=== PATIENT | male | born 1940 | race Caucasian/White ===

== ENCOUNTER → 2016-11-11 | Outpatient (CLI) | payer OTHER, MEDICARE | LOC: BHFA 14:00 | PROVIDERS: ATTEND Internal Medicine Interventional Cardiology | DX: I25.10 Atherosclerotic heart disease of native coronary artery without angina pectoris (principal); Z95.1 Presence of aortocoronary bypass graft; E78.5 Hyperlipidemia, unspecified; I10 Essential (primary) hypertension; I48.91 Unspecified atrial fibrillation ==

== ENCOUNTER 2017-01-24 14:26 | Inpatient (IN) | payer OTHER, MEDICARE ==
[2017-01-24 14:35] LABS: COLOR YELLOW; NITRITE,URINE POSITIVE (NEGATIVE); PH,URINE 5.5 (5.0-7.5)
--- NOTE | 2017-01-24 14:43 | EDPHY ---
H & P Stated Complaint: FREQUENCY, DARK URINE SINCE YESTERDAY; CHILLS HPI/ROS: HPI CHIEF COMPLAINT: Urinary frequency, dysuria x1 day HISTORY OF PRESENT ILLNESS: This patient very pleasant 76-year-old male, presents emergency room with dysuria, urinary frequency x1 day. No fever. No back pain no abdominal pain no nausea vomiting. Denies chest pain or shortness of breath. Main complaint dysuria, urinary frequency. Past Medical History: Parkinsonism, coronary artery disease Past Surgical History: CABG Social History: Denies daily use drugs alcohol tobacco products Family History: Noncontributory ROS REVIEW OF SYSTEMS: A comprehensive 10 point review of systems is otherwise negative aside from elements mentioned in the history of present illness. Exam Constitutional appears well nontoxic triage nursing summary reviewed, vital signs reviewed, awake/alert. Eyes normal conjunctivae and sclera, EOMI, PERRLA. HENT normal inspection, atraumatic, moist mucus membranes, no epistaxis, neck supple/ no meningismus, no raccoon eyes. Respiratory clear to auscultation bilaterally, normal breath sounds, no respiratory distress, no wheezing. Cardiovascular rate normal, regular rhythm, no murmur, no edema, distal pulses normal. Gastrointestinal soft, non-tender, no rebound, no guarding, normal bowel sounds, no distension, no pulsatile mass. Genitourinary no CVA tenderness. Musculoskeletal no midline vertebral tenderness, full range of motion, no calf swelling, no tenderness of extremities, no meningismus, good pulses, neurovascularly intact. Skin pink, warm, & dry, no rash, skin atraumatic. Neurologic awake, alert and oriented x 3, AAOx3, moves all 4 extremities equally, motor intact, sensory intact, CN II-XII intact, normal cerebellar, normal vision, normal speech. Psychiatric normal mood/affect. Heme/Lymph/Immune no lymphadenopathy. Differential Diagnosis: Includes but is not limited to in a particular order, a urinary tract infection, cystitis, urethritis, pyelo Medical Decision Making: This patient appears well nontoxic no acute distress normal vital signs no fever. Complaining of dysuria urinary frequency x1 day concern for UTI. Will send urinalysis. Re-evaluation: Urinalysis results nitrite positive. Will send urine culture. 1st dose of Keflex given here in the emergency room. Keflex take-home pack. Understands follow-up with his primary care doctor return emergency room if develops worsening symptoms includes high fever, vomiting or questions or concerns. 1534: This patient tells me his blood pressure normally is 130 systolic. He has had 2 low readings here of 89 systolic and 90 systolic. Due to his nitrite positive UTI I am concerned that may be having hypotension in the setting of a urinary tract infection. Will expand his workup with an IV established, IV fluid bolus, check a lactic acid, blood cultures, blood work. 1618: Re-evaluation at this time this patient's blood pressure 102 systolic. Blood work reviewed as an elevated lactic acid, nitrite positive UTI with leukocyte Estrace bacteria, whites and reds. Given this patient's UTI, lower blood pressures 80s and 90 systolic, elevated lactic acid white count of 20k+ I do recommend he gets admitted to the hospital for IV fluid resuscitation, IV antibiotics and concern for UTI with sepsis. Getting his 2nd L fluid at this time. Will repeat his lactic acid. I did speak to the hospitalist service Dr. Davidson who agrees to admit patient. Patient be admitted to PCU for close monitoring. No evidence of septic shock at this time. Hemodynamically stable. No need for pressors or central line at this time. Blood cultures pending. Urine culture pending. 1707: Repeat lactic acid still of a 2.4 but coming down after 2 L of fluid. 3rd L of fluid ordered. Current blood pressure is 105/57. Hemodynamically stable. Heart rate 75. Afebrile. Source: Patient - Personal History Current Tetanus/Diphtheria Vaccine: Yes Tetanus Vaccine Date: WITHIN 10 YRS - Medical/Surgical History Hx Asthma: No Hx Chronic Respiratory Disease: No Hx Diabetes: No Hx Cardiac Disease: Yes Hx Renal Disease: No Hx Cirrhosis: No Hx Alcoholism: No Hx HIV/AIDS: No Hx Splenectomy or Spleen Trauma: No Other PMH: medical- HTN, HLD, SPINAL STENOSIS, BPH, CAD, parkinsons, afib. surgical- CARDIAC BYPASS, ORTHO SURGERY, cholecystectomy, - Social History Smoking Status: Never smoked Constitutional: Initial Vital Signs Temperature (C) 37.8 C 01/24/17 14:30 Heart Rate 90 01/24/17 14:30 Respiratory Rate 18 01/24/17 14:30 Blood Pressure 112/77 01/24/17 14:30 O2 Sat (%) 91 L 01/24/17 14:30 O2 Delivery Mode Room Air Allergies/Adverse Reactions: No Known Allergies Allergy (Verified 01/24/17 14:35) Home Medications: Medication Instructions Recorded Atorvastatin Calcium [Lipitor 10 10 mg PO DAILY 07/29/13 mg (*)] Multivitamins [Multivitamin (*)] 1 each PO DAILY 07/29/13 Omeprazole Magnesium [Prilosec Otc] 20 mg PO DAILY 07/29/13 Aspirin [Aspirin 81mg (*)] 81 mg PO DAILY 11/19/15 Carbidopa/Levodopa 1 each PO BID@,18 11/19/15 [Carbidopa-Levodopa 25-100 Tab] Dutasteride [Avodart 0.5 MG (*)] 0.5 mg PO Q2D 11/19/15 Fluticasone Nasal [Flonase Nasal 1 sprays NASAL HS PRN 11/19/15 Nedrow] Herbals/Supplements -Info Only 1 ea PO DAILY 11/19/15 Losartan Potassium [Cozaar 50 mg 50 mg PO DAILY 11/19/15 (*)] Rasagiline Mesylate [Azilect] 1 mg PO HS 11/19/15 amLODIPine BESYLATE [Norvasc 5 mg 5 mg PO DAILY 11/19/15 (*)] Metoprolol Tartrate [Lopressor 25 50 mg PO BID #120 tab 11/20/15 mg (*)] Benzonatate [Tessalon Pearles (RX)] 100 mg PO TID PRN 01/24/17 Ibuprofen 400 mg PO BID PRN 01/24/17 Rivaroxaban [Xarelto] 20 mg PO DAILY@18 01/24/17 guaiFENesin [Mucinex 600 MG (*)] 600 mg PO BID PRN 01/24/17 Medical Decision Making - Data Points Laboratory Results: Laboratory Results 01/24/17 15:50 01/24/17 15:50 01/24/17 01/24/17 01/24/17 15:50 15:50 15:50 WBC 22.92 10^3/uL H 10^3/uL (3.80-9.50) RBC 4.66 10^6/uL 10^6/uL (4.40-6.38) Hgb 13.8 g/dL g/dL (13.7-17.5) Hct 39.6 % L % (40.0-51.0) MCV 85.0 fL fL (81.5-99.8) MCH 29.6 pg pg (27.9-34.1) MCHC 34.8 g/dL g/dL (32.4-36.7) RDW 14.2 % % (11.5-15.2) Plt Count 239 10^3/uL 10^3/uL (150-400) MPV 10.1 fL fL (8.7-11.7) Neut % (Auto) 93.9 % H % (39.3-74.2) Lymph % (Auto) 1.4 % L % (15.0-45.0) Pettis % (Auto) 3.7 % L % (4.5-13.0) Eos % (Auto) 0.0 % L % (0.6-7.6) Baso % (Auto) 0.1 % L % (0.3-1.7) Nucleat RBC Rel Count 0.0 % % (0.0-0.2) Absolute Neuts (auto) 21.54 10^3/uL H 10^3/uL (1.70-6.50) Absolute Lymphs (auto) 0.31 10^3/uL L 10^3/uL (1.00-3.00) Absolute Monos (auto) 0.84 10^3/uL H 10^3/uL (0.30-0.80) Absolute Eos (auto) 0.00 10^3/uL L 10^3/uL (0.03-0.40) Absolute Basos (auto) 0.02 10^3/uL 10^3/uL (0.02-0.10) Absolute Nucleated RBC 0.00 10^3/uL 10^3/uL (0-0.01) Immature Gran % 0.9 % % (0.0-1.1) Immature Gran # 0.21 10^3/uL H 10^3/uL (0.00-0.10) PT 25.2 SEC H SEC (12.0-15.0) INR 2.31 H (0.83-1.16) APTT 48.8 SEC H SEC (23.0-38.0) VBG Lactic Acid Sodium 136 mEq/L mEq/L (134-144) Potassium 3.4 mEq/L L mEq/L (3.5-5.2) Chloride 100 mEq/L mEq/L (97-110) Carbon Dioxide 25 mEq/l mEq/l (22-31) Anion Gap 11 mEq/L mEq/L (8-16) BUN 32 mg/dL H mg/dL (7-23) Creatinine 1.4 mg/dL H mg/dL (0.7-1.3) Estimated GFR 49 Glucose 104 mg/dL H mg/dL (70-100) Calcium 8.4 mg/dL L mg/dL (8.5-10.4) Total Bilirubin 4.7 mg/dL H mg/dL (0.1-1.4) Conjugated Bilirubin 0.5 mg/dL mg/dL (0.0-0.5) Unconjugated Bilirubin 4.2 mg/dL H mg/dL (0.0-1.1) AST 21 IU/L IU/L (17-59) ALT 18 IU/L L IU/L (21-72) Alkaline Phosphatase 42 IU/L IU/L (38-126) Total Protein 5.3 g/dL L g/dL (6.3-8.2) Albumin 3.2 g/dL L g/dL (3.5-5.0) Lipase 35.0 IU/L IU/L (23-300) Urine Color Urine Appearance Urine pH Ur Specific [place] Urine Protein Urine Ketones Urine Blood Urine Nitrate Urine Bilirubin Urine Urobilinogen Ur Leukocyte Esterase Urine RBC Urine WBC Ur Epithelial Cells Ur Renal Epithelial Cell Urine Bacteria Urine Mucus Urine Glucose 01/24/17 01/24/17 15:50 14:25 WBC RBC Hgb Hct MCV MCH MCHC RDW Plt Count MPV Neut % (Auto) Lymph % (Auto) Pettis % (Auto) Eos % (Auto) Baso % (Auto) Nucleat RBC Rel Count Absolute Neuts (auto) Absolute Lymphs (auto) Absolute Monos (auto) Absolute Eos (auto) Absolute Basos (auto) Absolute Nucleated RBC Immature Gran % Immature Gran # PT INR APTT VBG Lactic Acid 2.9 mmol/L H mmol/L (0.7-2.1) Sodium Potassium Chloride Carbon Dioxide Anion Gap BUN Creatinine Estimated GFR Glucose Calcium Total Bilirubin Conjugated Bilirubin Unconjugated Bilirubin AST ALT Alkaline Phosphatase Total Protein Albumin Lipase Urine Color YELLOW Urine Appearance CLOUDY Urine pH 5.5 (5.0-7.5) Ur Specific [place] 1.025 (1.002-1.030) Urine Protein 2+ H (NEGATIVE) Urine Ketones TRACE H (NEGATIVE) Urine Blood 3+ H (NEGATIVE) Urine Nitrate POSITIVE H (NEGATIVE) Urine Bilirubin NEGATIVE (NEGATIVE) Urine Urobilinogen 1.0 EU EU (0.2-1.0) Ur Leukocyte Esterase 3+ H (NEGATIVE) Urine RBC 50-182 /hpf H /hpf (0-3) Urine WBC >182 /hpf H /hpf (0-3) Ur Epithelial Cells TRACE /lpf /lpf (NONE-1+) Ur Renal Epithelial Cell OCCASIONAL /hpf H /hpf (NONE SEEN) Urine Bacteria 2+ /hpf H /hpf (NONE SEEN) Urine Mucus 1+ /lpf /lpf (NONE-1+) Urine Glucose NEGATIVE (NEGATIVE) Medications Given: Discontinued Medications Cephalexin (Keflex 500 Mg Prepack#4) 1 btl TAKEHOME EDNOW ONE PRN Reason: Protocol Stop: 01/24/17 14:46 Last Admin: 01/24/17 15:00 Dose: 1 btl Cephalexin HCl (Keflex) 500 mg PO EDNOW ONE PRN Reason: Protocol Stop: 01/24/17 14:46 Last Admin: 01/24/17 15:00 Dose: 500 mg Sodium Chloride (Ns) 1,000 mls @ 0 mls/hr IV ONCE ONE; Wide Open PRN Reason: Protocol Stop: 01/24/17 15:34 Last Admin: 01/24/17 15:55 Dose: 1,000 mls Ceftriaxone Sodium/Dextrose (Rocephin 1 Gm (Premix)) 50 mls @ 100 mls/hr IV EDNOW ONE PRN Reason: Protocol Stop: 01/24/17 16:02 Last Admin: 01/24/17 15:56 Dose: 50 mls Sodium Chloride (Ns) 1,000 mls @ 0 mls/hr IV ONCE ONE PRN Reason: Wide Open Stop: 01/24/17 16:13 Last Admin: 01/24/17 16:15 Dose: 1,000 mls Sodium Chloride (Ns) 1,000 mls @ 0 mls/hr IV ONCE ONE PRN Reason: Wide Open Stop: 01/24/17 17:06 Last Admin: 01/24/17 17:13 Dose: 1,000 mls Sodium Chloride (Ns) 1,000 mls @ 999 mls/hr IV ONCE ONE Stop: 01/24/17 19:49 Last Admin: 01/24/17 20:59 Dose: 1,000 mls Departure - Departure Disposition: [facility] Acute Clinical Impression: Sepsis secondary to UTI UTI (urinary tract infection) Qualifiers: Urinary tract infection type: acute cystitis Hematuria presence: with hematuria Qualified Code(s): N30.01 - Acute cystitis with hematuria Condition: Good
[2017-01-24 14:45] LABS: LEUKOCYTE ESTERASE,URINE 3+ (NEGATIVE)
[2017-01-24] MEDS ORDERED: CEPHALEXIN 500 MG CAP PO ONE (14:45)
[2017-01-24] MEDS ORDERED: CEPHALEXIN 500MG PREPACK#4 BTL TAKEHOME ONE (14:45)
[2017-01-24 14:48] LABS: BACTERIA 2+ /hpf (NONE SEEN); MUCUS 1+ /lpf (NONE-1+); RBC,URINE 50-182 /hpf (0-3); RENAL EPITHELIAL CELLS OCCASIONAL /hpf (NONE SEEN); WBC,URINE >182 /hpf (0-3)
[2017-01-24] MEDS ORDERED: NS 1,000 ML IV ONE ×4 (15:33→18:49)
[2017-01-24 15:58] LABS: % IMMATURE GRANULYOCYTES 0.9 % (0.0-1.1); ABSOLUTE IMMATURE GRANULOCYTES 0.21 10^3/uL (0.00-0.10); ADD DIFF? NO; ADD MORPH? NO; ADD SCAN? NO; ATYPICAL LYMPHOCYTE FLAG 0 (0-99); FRAGMENT RBC FLAG 0 (0-99); HEMATOCRIT 39.6 % (40.0-51.0); HEMOGLOBIN 13.8 g/dL (13.7-17.5); LEFT SHIFT FLG 90 (0-99); LIPEMIA HEMOLYSIS FLAG 90 (0-99); MEAN CELL HEMOGLOBIN 29.6 pg (27.9-34.1); MEAN CELL HEMOGLOBIN CONCENTR. 34.8 g/dL (32.4-36.7); MEAN PLATELET VOLUME 10.1 fL (8.7-11.7); PLATELET CLUMPS FLAG 0 (0-99); PLATELET COUNT 239 10^3/uL (150-400); RED BLOOD CELL COUNT 4.66 10^6/uL (4.40-6.38); RED CELL DISTRIBUTION WIDTH 14.2 % (11.5-15.2)
[2017-01-24 16:09] LABS: INR 2.31 (0.83-1.16); PROTIME(PATIENT) 25.2 SEC (12.0-15.0)
[2017-01-24 16:11] LABS: APTT 48.8 SEC (23.0-38.0)
[2017-01-24 16:13] LABS: ALBUMIN 3.2 g/dL (3.5-5.0); BILIRUBIN,TOTAL 4.7 mg/dL (0.1-1.4); BILIRUBIN-CONJUGATED 0.5 mg/dL (0.0-0.5); BILIRUBIN-UNCONJUGATED 4.2 mg/dL (0.0-1.1); CALCIUM 8.4 mg/dL (8.5-10.4); CREATININE 1.4 mg/dL (0.7-1.3); POTASSIUM 3.4 mEq/L (3.5-5.2); TOTAL PROTEIN 5.3 g/dL (6.3-8.2)
[2017-01-24] MEDS ORDERED: ACETAMINOPHEN 325 MG TAB PO PRN (18:48)
[2017-01-24] MEDS ORDERED: PROMETHAZINE HCL 25 MG/ML INJ IVP PRN (18:48)
[2017-01-24] MEDS ORDERED: ONDANSETRON 4 MG/2 ML VIAL IVP PRN (18:48)
[2017-01-24] MEDS ORDERED: FLUTICASONE NASAL 120 SPRAYS/16 GM MDI EACHNARE PRN (18:50)
[2017-01-24] MEDS ORDERED: D5W 1/2 NS W/ 20 KCl/L 1,000 ML IV SCH (19:00)
--- NOTE | 2017-01-24 19:08 | GHP ---
[f rep st] HISTORY AND PHYSICAL DATE OF ADMISSION: 01/24/2017 CHIEF COMPLAINT: Pain with urination and chills. HISTORY OF PRESENT ILLNESS: This is a 76-year-old male, history of coronary artery disease, and BPH who presented to [facility] earlier today with pain with urination and chills. His symptoms began yest erday morning and have worsened. He denies any flank pain. He denies any abdominal pain. He denie s any chest pain. In the emergency department, his urine was consistent with a urinary tract infection. A venous lact ic acid was done and was elevated at 2.9. Subsequently, he received 2 L of fluid. Initially, his b lood pressure was quite low at 89/53. The patient has now received 3 L and his systolic is now 109 with a diastolic of 57. He tells me that he is starting to feel better. PAST MEDICAL HISTORY: 1. Coronary artery disease, status post CABG. 2. BPH treated on Avodart. 3. Degenerative disk disease. 4. Hypertension. 5. A flutter. 6. Parkinson disease. 7. Intracranial hemorrhage in the setting of trauma and anticoagulation with subdural hematoma in 2 014. PAST SURGICAL HISTORY: 1. Cholecystectomy. 2. Multiple orthopedic procedures. HOME MEDICATIONS: Reviewed. Refer to [employer] for details. ALLERGIES: No known drug allergies. SOCIAL HISTORY: He denies any alcohol, tobacco, or illicit drug use. FAMILY HISTORY: Reviewed and noncontributory. REVIEW OF SYSTEMS: Comprehensive 10-point review of systems was done and is negative, except for as mentioned in the HPI. PHYSICAL EXAM: VITAL SIGNS: Blood pressure 109/57, pulse of 80, respiratory rate 22, O2 saturation 96% on 2 L. Temperature afebrile. GENERAL: No acute distress. HEAD: Normocephalic, atraumatic. EYES: PERRLA. Sclerae anicteric. MOUTH: Moist mucous membranes. NECK: Supple. No lymphadeno shi. CARDIOVASCULAR: S1, S2. No murmurs, rubs, clicks, gallops, or JVD. No lower extremity rebeca ma. PULMONARY: Lungs are clear. No wheezes, rales, or rhonchi. ABDOMEN: Soft, nontender, nondis tended. No guarding or rebound tenderness. Normoactive bowel sounds. EXTREMITIES: No clubbing or cyanosis. NEURO: Cranial nerves 2-12 grossly intact. No focal motor or sensory deficits. SKIN: Clear, no rashes. DIAGNOSTICS: WBC is 22.92, hemoglobin 13.8, hematocrit 39.6, platelets 239. PTT 25.2, INR 2.31, PT T 48.8. Initial venous lactic acid was 2.9, repeat was 2.4. Sodium 136, potassium 3.4, chloride 10 0, BUN 32, creatinine 1.4, glucose 104. UA 2+ protein, trace ketones, positive nitrite, 3+ leukocyt e esterase. ASSESSMENT AND PLAN: This is a 76-year-old male with history of coronary artery disease, status pos t bypass presenting with: 1. Severe sepsis due to presumed urinary tract infection. Plan: The patient will be admitted to [facility] per the sepsis protocol. He will receive IV ceftriaxone and IV fluids. Will continue t o monitor his lactic acid to ensure it is normalizing. 2. History of coronary artery disease that appears to be stable. Plan: Monitor for signs and symp toms of acute coronary syndrome in the setting of sepsis. 3. History of atrial flutter. Plan: Continue home medications. Monitor on telemetry. 4. Acute kidney injury most likely due to above. Plan: Continue to monitor renal function and gianluca id nephrotoxins. /[id number]/MODL
[2017-01-24] MEDS: CARBIDOPA/LEVODOPA 25 MG/100 MG TAB PO SCH (20:59)
[2017-01-24] MEDS: RIVAROXABAN 20 MG TAB PO SCH (21:00)
[2017-01-24] MEDS ORDERED: RASAGILINE MESYLATE 1 MG PO SCH (21:00)
[2017-01-24] MEDS: Rasagiline Mesylate [Azilect] 1 MG PO SCH (21:00)
[2017-01-25 04:37] LABS: ADD DIFF? YES; ADD MORPH? NO; ADD SCAN? YES; ATYPICAL LYMPHOCYTE FLAG 0 (0-99); FRAGMENT RBC FLAG 0 (0-99); HEMATOCRIT 37.5 % (40.0-51.0); HEMOGLOBIN 12.5 g/dL (13.7-17.5); LIPEMIA HEMOLYSIS FLAG 80 (0-99); MEAN CELL HEMOGLOBIN 29.6 pg (27.9-34.1); MEAN CELL HEMOGLOBIN CONCENTR. 33.3 g/dL (32.4-36.7); MEAN CELL VOLUME 88.7 fL (81.5-99.8); MEAN PLATELET VOLUME 10.5 fL (8.7-11.7); PLATELET CLUMPS FLAG 10 (0-99); PLATELET COUNT 193 10^3/uL (150-400); RED BLOOD CELL COUNT 4.23 10^6/uL (4.40-6.38); RED CELL DISTRIBUTION WIDTH 14.5 % (11.5-15.2)
[2017-01-25 04:40] LABS: LEFT SHIFT FLG 120 (0-99)
[2017-01-25 04:42] LABS: ANION GAP 8 mEq/L (8-16); CALCIUM 8.3 mg/dL (8.5-10.4); CARBON DIOXIDE 22 mEq/l (22-31); CHLORIDE 110 mEq/L (97-110); CREATININE 1.1 mg/dL (0.7-1.3); GLOMERULAR FILTRATION RATE > 60; GLUCOSE 98 mg/dL (70-100); POTASSIUM 4.1 mEq/L (3.5-5.2); SODIUM 140 mEq/L (134-144)
[2017-01-25 05:32] LABS: PLATELET ESTIMATE ADEQUATE (ADEQ); POLYCHROMASIA 1+
[2017-01-25 07:25] LABS: SCAN NEGATIVE
[2017-01-25] MEDS: cefTRIAXone 2 GM in D5W 50 ML IV SCH (08:47)
[2017-01-25] MEDS: ASPIRIN 81 MG CHEWABLE TAB PO SCH (08:47)
[2017-01-25] MEDS: MULTIVITAMINS 1 EACH TAB PO SCH (08:47)
[2017-01-25] MEDS: CARBIDOPA/LEVODOPA 25 MG/100 MG TAB PO SCH ×2 (08:47→18:21)
[2017-01-25] MEDS: PANTOPRAZOLE SODIUM 40 MG TAB PO SCH (08:49)
[2017-01-25] MEDS ORDERED: Herbals/Supplements -Info Only PO SCH (09:00)
[2017-01-25] MEDS ORDERED: NON-FORMULARY NEW DRUG (Omeprazole Magnesium [Prilosec Otc] 20 MG) PO SCH (09:00)
[2017-01-25] MEDS: ATORVASTATIN CALCIUM 10 MG TAB PO SCH (09:47)
[2017-01-25] MEDS: METOPROLOL TARTRATE 25 MG TAB PO SCH ×2 (09:47→20:41)
[2017-01-25] MEDS: DUTASTERIDE 0.5 MG CAP PO SCH (12:36)
--- NOTE | 2017-01-25 17:33 | HOSPPROG ---
Hospitalist Progress Note Assessment/Plan: 76 yo M with hx of Parkinson's as well as BPH and CAD pw severe sepsis and UTI # severe sepsis: lactate minimally elevated on arrival as well as significant leukocytosis, hypotension, tachycardia, tachypnea. BP improved, lactate trended down but wbc increasing. Source presumed to be urinary but also with cough and loose stools. Will get cxr, check c diff, follow urine and blood cxs # uti: with urinary complaints that are improving since initiating abx with urine appearing more clear as well. Urine cultures pending, continued ctx for the time being # bibiana: with uti and sepsis on presentation and improved with fluids, holding losartan and nsaids # bph: continue avodart # cad: without chest pain, continue op medications # htn: slightly hypotensive on arrival and bp still within the low normal range since admission, resumed metoprolol, can likely resume losartan in am as well as amlodipine if bp continues to increase # dispo: IP status, high risk presenting issues requiring > 48 hours stay Patient new to my care. old records reviewed and summarized as above. Subjective: no significant overnight events, today he is feeling much better, urinating a lot Objective: Vital Signs Temp Pulse Resp BP Pulse Ox 36.6 C 107 H 25 H 117/79 96 01/25/17 15:04 01/25/17 15:04 01/25/17 15:04 01/25/17 15:04 01/25/17 15:04 Laboratory Results 01/25/17 03:57 01/25/17 03:57 01/24/17 01/25/17 01/26/17 05:59 05:59 05:59 Intake Total 3550 50 Output Total 975 250 Balance 2575 -200 PT 25.2 SEC (12.0-15.0) H 01/24/17 15:50 INR 2.31 (0.83-1.16) H 01/24/17 15:50 awake alert nad anicteric op clear rrr no mrg cta soft nt nd no cce warm dry well perfused oriented pill rolling tremor ICD10 Worksheet Patient Problems: Problems Problem Status Onset Cholecystitis chronic, acute Acute Atrial flutter Acute Atrial fibrillation with rapid ventricular response Acute UTI (urinary tract infection) Acute Sepsis secondary to UTI Acute
[2017-01-25] MEDS: Rasagiline Mesylate [Azilect] 1 MG PO SCH (18:12)
[2017-01-25] MEDS: RIVAROXABAN 20 MG TAB PO SCH (18:21)
[2017-01-25] MEDS: guaiFENesin 600 MG TAB.ER PO PRN (20:41)
[2017-01-25] MEDS: BENZONATATE 100 MG CAP PO PRN (20:41)
[2017-01-26 04:35] LABS: % IMMATURE GRANULYOCYTES 1.3 % (0.0-1.1); ABSOLUTE IMMATURE GRANULOCYTES 0.22 10^3/uL (0.00-0.10); ADD DIFF? NO; ADD MORPH? NO; ADD SCAN? NO; ATYPICAL LYMPHOCYTE FLAG 0 (0-99); FRAGMENT RBC FLAG 0 (0-99); HEMATOCRIT 37.8 % (40.0-51.0); HEMOGLOBIN 12.7 g/dL (13.7-17.5); LEFT SHIFT FLG 40 (0-99); LIPEMIA HEMOLYSIS FLAG 80 (0-99); MEAN CELL HEMOGLOBIN 29.8 pg (27.9-34.1); MEAN CELL HEMOGLOBIN CONCENTR. 33.6 g/dL (32.4-36.7); MEAN CELL VOLUME 88.7 fL (81.5-99.8); MEAN PLATELET VOLUME 10.8 fL (8.7-11.7); PLATELET CLUMPS FLAG 10 (0-99); PLATELET COUNT 188 10^3/uL (150-400); RED BLOOD CELL COUNT 4.26 10^6/uL (4.40-6.38); RED CELL DISTRIBUTION WIDTH 14.4 % (11.5-15.2)
[2017-01-26 04:45] LABS: ANION GAP 8 mEq/L (8-16); CALCIUM 8.5 mg/dL (8.5-10.4); CARBON DIOXIDE 23 mEq/l (22-31); CHLORIDE 108 mEq/L (97-110); GLOMERULAR FILTRATION RATE > 60; GLUCOSE 94 mg/dL (70-100); POTASSIUM 4.1 mEq/L (3.5-5.2); SODIUM 139 mEq/L (134-144)
[2017-01-26] MEDS: MULTIVITAMINS 1 EACH TAB PO SCH (08:16)
[2017-01-26] MEDS: ASPIRIN 81 MG CHEWABLE TAB PO SCH (08:16)
[2017-01-26] MEDS: PANTOPRAZOLE SODIUM 40 MG TAB PO SCH (08:16)
[2017-01-26] MEDS: cefTRIAXone 2 GM in D5W 50 ML IV SCH (08:16)
[2017-01-26] MEDS: ATORVASTATIN CALCIUM 10 MG TAB PO SCH (08:16)
[2017-01-26] MEDS: CARBIDOPA/LEVODOPA 25 MG/100 MG TAB PO SCH ×2 (08:16→17:41)
[2017-01-26] MEDS ORDERED: DUTASTERIDE 0.5 MG CAP PO SCH (09:00)
--- NOTE | 2017-01-26 09:47 | HOSPPROG ---
Hospitalist Progress Note Assessment/Plan: DIAGNOSES: -Acute severe sepsis with organ failure -Acute kidney injury -Complicated urinary tract infection with sensitive E coli -Acute congestive heart failure, -Atrial fibrillation/flutter, with adequate rate control at this time; chronically anticoagulated The patient is has some improvement with better blood pressures, improved renal function. He does have some mild congestion pulmonary edema but at this time I would hold off on diuresis and to we see that he clearly stays stable and has good resolution of his renal function. However if he has problems with rate control or dyspnea or is failing in other ways would go ahead and attempt to diurese him. PLANS: - Continue IV antibiotics to cover sensitive E coli -Will hold off on further fluid resuscitation at this time pending his progress -Continue to hold amlodipine and losartan -Continue anticoagulation with Xarelto -Continue metoprolol for rate control as long as blood pressure tolerates that ; may need to consider adding some diltiazem for his heart failure and fast heart rate SUBJECTIVE: the patient feels fairly better He has had some intermittent dyspnea Some urinary frequency No abdominal pain or dysuria OBJECTIVE Vitals reviewed: blood pressure is now in good range, heart rate intermittently slightly fast, no fever [employer] Contact Worker, my review: currently atrial flutter with variable conduction at 1-3 and 1-4 Exam: alert oriented skin warm dry color ok resps mildly labored lungs bilateral rales heart regular slightly rapid abd soft nondistended nontender, bowel sounds present limbs warm, with palpable pitting edema of both legs iv site ok laboratory data white count remains elevated at 16,000 thousand Kidney function improved somewhat 1.4 Some improvement in lactic acidosis still slightly high Objective: Vital Signs Temp Pulse Resp BP Pulse Ox 37.0 C 90 20 144/67 H 96 01/26/17 03:41 01/26/17 03:41 01/26/17 03:41 01/26/17 03:41 01/26/17 03:41 Laboratory Results 01/26/17 03:32 01/26/17 03:32 01/25/17 01/26/17 01/27/17 06:59 06:59 06:59 Intake Total 3550 1750 Output Total 975 725 125 Balance 2575 1025 -125 PT 25.2 SEC (12.0-15.0) H 01/24/17 15:50 INR 2.31 (0.83-1.16) H 01/24/17 15:50 ICD10 Worksheet Patient Problems: Problems Problem Status Onset Sepsis secondary to UTI Acute UTI (urinary tract infection) Acute Atrial fibrillation with rapid ventricular response Acute Atrial flutter Acute Cholecystitis chronic, acute Acute
[2017-01-26] MEDS: METOPROLOL TARTRATE 25 MG TAB PO SCH ×2 (10:21→20:16)
[2017-01-26] MEDS: RIVAROXABAN 20 MG TAB PO SCH (17:41)
[2017-01-26] MEDS: guaiFENesin 600 MG TAB.ER PO PRN (17:41)
[2017-01-26] MEDS: BENZONATATE 100 MG CAP PO PRN (17:41)
[2017-01-26] MEDS: Rasagiline Mesylate [Azilect] 1 MG PO SCH (20:30)
[2017-01-27] MEDS: guaiFENesin 600 MG TAB.ER PO PRN (04:17)
[2017-01-27] MEDS: BENZONATATE 100 MG CAP PO PRN (04:17)
[2017-01-27] MEDS: PANTOPRAZOLE SODIUM 40 MG TAB PO SCH (08:44)
[2017-01-27] MEDS: cefTRIAXone 2 GM in D5W 50 ML IV SCH (08:44)
[2017-01-27] MEDS: ATORVASTATIN CALCIUM 10 MG TAB PO SCH (08:44)
[2017-01-27] MEDS: CARBIDOPA/LEVODOPA 25 MG/100 MG TAB PO SCH ×2 (08:44→17:31)
[2017-01-27] MEDS: METOPROLOL TARTRATE 25 MG TAB PO SCH (08:45)
[2017-01-27] MEDS: MULTIVITAMINS 1 EACH TAB PO SCH (08:45)
[2017-01-27] MEDS: ASPIRIN 81 MG CHEWABLE TAB PO SCH (08:45)
[2017-01-27] MEDS: DUTASTERIDE 0.5 MG CAP PO SCH (08:46)
[2017-01-27 09:08] VITALS: RESP 18; O2SAT 97
[2017-01-27 13:09] VITALS: BP 121/72; PULSE 102; TEMP 98.1
--- NOTE | 2017-01-27 13:59 | PDDCSUM ---
Discharge Summary Discharge Summary: DISCHARGE DIAGNOSES: -Acute severe sepsis with organ failure -Acute kidney injury -Complicated urinary tract infection with sensitive E coli -Acute congestive heart failure, -Atrial fibrillation/flutter, with adequate rate control at this time; chronically anticoagulated HOSPITAL COURSE SUMMARY: This patient with long history of Parkinson's disease, and prostate disease with some outlet obstruction symptoms, comes in at this time with acute sepsis which was severe and complicated by acute renal failure. The cause was found to be a urinary tract infection with a sensitive E coli. The patient is admitted to the hospital and resuscitated with IV fluids and started promptly on IV antibiotics. His blood pressure medicines including losartan were held in the hospital. He responded quite well and by the time of discharge sepsis has completely resolved, renal function back at baseline, and he is up ambulating in the hallway and feeling mostly back to normal. There is no sign of other complication. He at this time he is stable for discharge to home. He will be able to resume his blood pressure medicines though will have him not start taking his losartan for now other 2 days at home due to his renal insufficiency episode. Along with the patient's chronic Parkinson's disease he has a mild chronic cough and what he describes as excessive amount of saliva. We did have a speech language pathology evaluation here PENDING TEST RESULTS: none MEDICATION CHANGES: addition of levaquin 750 mg daily for UTI with sepsis FOLLOW-UP PLAN: with Dr Pa in 1 week Greater than 35 minutes bedside and care coordination time today
[2017-01-27] MEDS: RIVAROXABAN 20 MG TAB PO SCH (17:30)
== END 2017-01-27 17:58 | disposition home or self-care (01) | DRG 872 ==
LOC: CED 14:26 → CEDHOLD 16:15 → F2W 17:56
PROVIDERS: ADMIT Family Medicine; ATTEND Family Medicine
DX: A41.51 Sepsis due to Escherichia coli [E. coli] (principal); N39.0 Urinary tract infection, site not specified; N17.9 Acute kidney failure, unspecified; R65.20 Severe sepsis without septic shock; I11.0 Hypertensive heart disease with heart failure; I50.9 Heart failure, unspecified; I48.91 Unspecified atrial fibrillation; G20 Parkinson's disease; N40.1 Benign prostatic hyperplasia with lower urinary tract symptoms; I25.10 Atherosclerotic heart disease of native coronary artery without angina pectoris; Z79.01 Long term (current) use of anticoagulants; Z95.1 Presence of aortocoronary bypass graft
CPT/HCPCS: 80048-PO; 80076-PO; 81003-PO; 81015-PO; 83605-PO; 83690-PO; 85025-PO; 85610-PO; 85730-PO; 96365; J0696

== ENCOUNTER → 2017-02-08 | Outpatient (CLI) | payer OTHER, MEDICARE | LOC: CIMAGING 12:33 | PROVIDERS: ATTEND Internal Medicine | DX: R93.49 Abnormal radiologic findings on diagnostic imaging of other urinary organs (principal); N13.30 Unspecified hydronephrosis; R93.421 Abnormal radiologic findings on diagnostic imaging of right kidney; N28.1 Cyst of kidney, acquired; N39.0 Urinary tract infection, site not specified; Z86.19 Personal history of other infectious and parasitic diseases | CPT/HCPCS: 76770-PO; 81003-PO; 85025-PO ==

== ENCOUNTER → 2018-12-05 | Outpatient (CLI) | payer OTHER, MEDICARE | LOC: BHFA 14:45 | PROVIDERS: ATTEND Internal Medicine Cardiovascular Disease | DX: I25.10 Atherosclerotic heart disease of native coronary artery without angina pectoris (principal); I48.91 Unspecified atrial fibrillation ==